=== PATIENT | female | born 1950 | race Caucasian/White ===

== ENCOUNTER 2019-05-18 11:32 | Inpatient (IN) ==
[2019-05-18] MEDS ORDERED: traMADol 50 MG TABLET PO PRN (14:12)
[2019-05-18] MEDS ORDERED: NON-FORMULARY MEDICATION 1 EACH EACH (Ondansetron Hcl [Zofran] 4 MG) PO PRN (14:12)
[2019-05-18] MEDS ORDERED: Albuterol 2.5 MG/3 ML NEBULIZER IH PRN ×2 (14:12→17:13)
[2019-05-18] MEDS: *HR* Rivaroxaban 10 MG TABLET PO SCH (16:29)
[2019-05-18] MEDS: Cefdinir 300 MG CAPSULE PO SCH (21:21)
[2019-05-18] MEDS: ACLIDINIUM IH SCH (22:05)
[2019-05-19] MEDS: Cefdinir 300 MG CAPSULE PO SCH ×2 (10:18→20:47)
[2019-05-19] MEDS: Furosemide 20 MG TABLET PO SCH (10:18)
[2019-05-19] MEDS: Folic Acid 1 MG TABLET PO SCH (10:18)
[2019-05-19] MEDS: Celecoxib 100 MG CAPSULE PO SCH (10:18)
[2019-05-19] MEDS: Fluticasone Propionate Nasal 50 MCG/SPRAY BOTTLE NS SCH (10:19)
[2019-05-19] MEDS: traMADol 50 MG TABLET PO PRN ×2 (10:25→20:47)
[2019-05-19] MEDS: DALIRESP 500MCG PO SCH ×2 (10:26→18:28)
[2019-05-19] MEDS: BREO ELLIPTA IH SCH (10:26)
[2019-05-19] MEDS: ACLIDINIUM IH SCH ×2 (10:26→20:49)
[2019-05-19] MEDS: Albuterol 2.5 MG/3 ML NEBULIZER IH PRN ×2 (10:55→22:18)
[2019-05-19] MEDS: Ondansetron ODT 4 MG TAB.RAPDIS PO PRN (13:15)
[2019-05-19] MEDS: *HR* Rivaroxaban 10 MG TABLET PO SCH (18:22)
[2019-05-19] MEDS: Lactobacillus 1 EACH CAP.SPRINK PO SCH (20:46)
[2019-05-20 06:59] LABS: Basophils % 0.4 %; Eosinophils # 0.3 K/mcL (0.0-0.6); Eosinophils % 2.4 %; Hematocrit 40.4 % (35.3-44.9); Hemoglobin 12.9 g/dL (11.5-15.4); Immature Granulocytes % 0.7 % (0-4); Lymphocytes # 1.6 K/mcL (0.6-4.6); Lymphocytes % 15.2 %; Mean Corpuscular HGB Conc 31.9 g/dL (31.6-35.5); Mean Corpuscular Hemoglobin 30.5 pg (28.0-33.3); Mean Corpuscular Volume 95.5 fL (83.0-100.0); Mean Platelet Volume 10.8 fL (9.4-12.4); Monocytes # 0.8 K/mcL (0.0-1.3); Monocytes % 7.8 %; Neutrophils # 7.8 K/mcL (1.6-8.9); Platelet Count 309 K/mcL (140-400); Red Blood Count 4.23 M/mcL (3.82-4.97); Red Cell Distribution Width 14.4 % (11.5-14.5); Segmented Neutrophils % 73.5 %; White Blood Count 10.6 K/mcL (4.3-11.1)
[2019-05-20 07:40] LABS: BUN/Creatinine Ratio 13 (6-26); Blood Urea Nitrogen 12 mg/dL (8-23); Calcium 9.1 mg/dL (8.6-10.3); Carbon Dioxide 32 mEq/L (23-29); Chloride 98 mEq/L (98-107); Glucose 125 mg/dL (70-105); Osmolality,Calculated 285 (280-300); Potassium 3.7 mEq/L (3.5-5.1); Sodium 137 mEq/L (136-145); Uric Acid 7.9 mg/dL (2.3-7.6); eGFR For African Americans > 60 (> 60); eGFR For Non-African Americans > 60 (> 60)
[2019-05-20] MEDS: Celecoxib 100 MG CAPSULE PO SCH (07:48)
[2019-05-20] MEDS: Cefdinir 300 MG CAPSULE PO SCH ×2 (07:49→20:09)
[2019-05-20] MEDS: Lactobacillus 1 EACH CAP.SPRINK PO SCH ×2 (07:49→20:08)
[2019-05-20] MEDS: Folic Acid 1 MG TABLET PO SCH (07:49)
[2019-05-20] MEDS: traMADol 50 MG TABLET PO PRN ×3 (07:49→20:09)
[2019-05-20] MEDS: Furosemide 20 MG TABLET PO SCH (07:50)
[2019-05-20 07:54] LABS: Thyroid Stimulating Hormone 2.063 mcIU/mL (0.340-5.600)
[2019-05-20] MEDS: Fluticasone Propionate Nasal 50 MCG/SPRAY BOTTLE NS SCH (07:57)
[2019-05-20] MEDS: ACLIDINIUM IH SCH ×2 (07:58→20:16)
[2019-05-20] MEDS: BREO ELLIPTA IH SCH (07:58)
[2019-05-20] MEDS: DALIRESP 500MCG PO SCH (07:58)
[2019-05-20] MEDS: Albuterol 2.5 MG/3 ML NEBULIZER IH PRN (08:46)
[2019-05-20] MEDS: Acetaminophen 325 MG TABLET PO PRN (10:32)
[2019-05-20] MEDS: *HR* Rivaroxaban 10 MG TABLET PO SCH (15:25)
[2019-05-20] MEDS: Ondansetron ODT 4 MG TAB.RAPDIS PO PRN (20:09)
[2019-05-21] MEDS: Acetaminophen 325 MG TABLET PO PRN (00:26)
[2019-05-21] MEDS: Lactobacillus 1 EACH CAP.SPRINK PO SCH ×2 (09:12→19:57)
[2019-05-21] MEDS: Celecoxib 100 MG CAPSULE PO SCH (09:12)
[2019-05-21] MEDS: Folic Acid 1 MG TABLET PO SCH (09:12)
[2019-05-21] MEDS: traMADol 50 MG TABLET PO PRN ×2 (09:13→20:05)
[2019-05-21] MEDS: Furosemide 20 MG TABLET PO SCH (09:13)
[2019-05-21] MEDS: Cefdinir 300 MG CAPSULE PO SCH ×2 (09:13→19:57)
[2019-05-21] MEDS: Fluticasone Propionate Nasal 50 MCG/SPRAY BOTTLE NS SCH (09:15)
[2019-05-21] MEDS: DALIRESP 500MCG PO SCH (09:17)
[2019-05-21] MEDS: BREO ELLIPTA IH SCH (12:20)
[2019-05-21] MEDS: ACLIDINIUM IH SCH ×2 (12:20→23:56)
[2019-05-21] MEDS: Ondansetron ODT 4 MG TAB.RAPDIS PO PRN (15:56)
[2019-05-21] MEDS: *HR* Rivaroxaban 10 MG TABLET PO SCH (17:17)
[2019-05-21] MEDS: Albuterol 2.5 MG/3 ML NEBULIZER IH PRN (18:58)
[2019-05-22] MEDS: Furosemide 20 MG TABLET PO SCH (08:13)
[2019-05-22] MEDS: Cefdinir 300 MG CAPSULE PO SCH ×2 (08:14→21:35)
[2019-05-22] MEDS: Folic Acid 1 MG TABLET PO SCH (08:14)
[2019-05-22] MEDS: Lactobacillus 1 EACH CAP.SPRINK PO SCH ×2 (08:14→21:34)
[2019-05-22] MEDS: Celecoxib 100 MG CAPSULE PO SCH (08:14)
[2019-05-22] MEDS: DALIRESP 500MCG PO SCH (08:15)
[2019-05-22] MEDS: Fluticasone Propionate Nasal 50 MCG/SPRAY BOTTLE NS SCH (08:15)
[2019-05-22] MEDS: ACLIDINIUM IH SCH ×2 (08:25→21:27)
[2019-05-22] MEDS: Ondansetron ODT 4 MG TAB.RAPDIS PO PRN ×2 (10:53→19:24)
[2019-05-22] MEDS: BREO ELLIPTA IH SCH (12:02)
[2019-05-22] MEDS: *HR* Rivaroxaban 10 MG TABLET PO SCH (16:29)
[2019-05-22] MEDS: traMADol 50 MG TABLET PO PRN (21:34)
[2019-05-23] MEDS: Fluticasone Propionate Nasal 50 MCG/SPRAY BOTTLE NS SCH (08:38)
[2019-05-23] MEDS: DALIRESP 500MCG PO SCH (08:38)
[2019-05-23] MEDS: ACLIDINIUM IH SCH ×2 (08:38→20:37)
[2019-05-23] MEDS: Lactobacillus 1 EACH CAP.SPRINK PO SCH ×2 (08:39→20:37)
[2019-05-23] MEDS: Cefdinir 300 MG CAPSULE PO SCH ×2 (08:39→20:37)
[2019-05-23] MEDS: BREO ELLIPTA IH SCH (08:39)
[2019-05-23] MEDS: Folic Acid 1 MG TABLET PO SCH (08:39)
[2019-05-23] MEDS: Furosemide 20 MG TABLET PO SCH (08:39)
[2019-05-23] MEDS: Celecoxib 100 MG CAPSULE PO SCH (08:39)
[2019-05-23] MEDS: traMADol 50 MG TABLET PO PRN ×2 (08:39→14:58)
[2019-05-23] MEDS: Ondansetron ODT 4 MG TAB.RAPDIS PO PRN (08:41)
[2019-05-23] MEDS: Albuterol 2.5 MG/3 ML NEBULIZER IH PRN (09:19)
[2019-05-23] MEDS: *HR* Rivaroxaban 10 MG TABLET PO SCH (16:48)
[2019-05-24] MEDS: Lactobacillus 1 EACH CAP.SPRINK PO SCH ×2 (08:48→19:56)
[2019-05-24] MEDS: Cefdinir 300 MG CAPSULE PO SCH ×2 (08:48→19:56)
[2019-05-24] MEDS: traMADol 50 MG TABLET PO PRN ×2 (08:48→19:55)
[2019-05-24] MEDS: Furosemide 20 MG TABLET PO SCH (08:48)
[2019-05-24] MEDS: Folic Acid 1 MG TABLET PO SCH (08:49)
[2019-05-24] MEDS: Celecoxib 100 MG CAPSULE PO SCH (08:49)
[2019-05-24] MEDS: DALIRESP 500MCG PO SCH (08:50)
[2019-05-24] MEDS: ACLIDINIUM IH SCH ×2 (08:50→19:57)
[2019-05-24] MEDS: Fluticasone Propionate Nasal 50 MCG/SPRAY BOTTLE NS SCH (08:50)
[2019-05-24] MEDS: BREO ELLIPTA IH SCH (08:53)
[2019-05-24] MEDS: Ondansetron ODT 4 MG TAB.RAPDIS PO PRN ×2 (08:53→19:55)
[2019-05-24] MEDS: Albuterol 2.5 MG/3 ML NEBULIZER IH PRN ×2 (09:04→20:36)
[2019-05-24] MEDS: *HR* Rivaroxaban 10 MG TABLET PO SCH (15:49)
[2019-05-25 06:37] LABS: Basophils % 0.4 %; Eosinophils # 0.1 K/mcL (0.0-0.6); Eosinophils % 1.5 %; Hematocrit 39.4 % (35.3-44.9); Hemoglobin 12.6 g/dL (11.5-15.4); Immature Granulocytes % 0.6 % (0-4); Lymphocytes # 1.4 K/mcL (0.6-4.6); Lymphocytes % 15.7 %; Mean Corpuscular Hemoglobin 29.6 pg (28.0-33.3); Mean Corpuscular Volume 92.5 fL (83.0-100.0); Monocytes # 0.8 K/mcL (0.0-1.3); Monocytes % 8.4 %; Neutrophils # 6.6 K/mcL (1.6-8.9); Platelet Count 325 K/mcL (140-400); Red Blood Count 4.26 M/mcL (3.82-4.97); Red Cell Distribution Width 13.5 % (11.5-14.5); Segmented Neutrophils % 73.4 %
[2019-05-25 08:24] LABS: Calcium 9.8 mg/dL (8.6-10.3); Potassium 3.5 mEq/L (3.5-5.1)
[2019-05-25] MEDS: traMADol 50 MG TABLET PO PRN ×2 (08:58→21:10)
[2019-05-25] MEDS: Cefdinir 300 MG CAPSULE PO SCH (08:59)
[2019-05-25] MEDS: Folic Acid 1 MG TABLET PO SCH (08:59)
[2019-05-25] MEDS: Fluticasone Propionate Nasal 50 MCG/SPRAY BOTTLE NS SCH (08:59)
[2019-05-25] MEDS: Celecoxib 100 MG CAPSULE PO SCH (09:00)
[2019-05-25] MEDS: Lactobacillus 1 EACH CAP.SPRINK PO SCH ×2 (09:01→21:08)
[2019-05-25] MEDS: Furosemide 20 MG TABLET PO SCH (09:01)
[2019-05-25] MEDS: BREO ELLIPTA IH SCH (09:05)
[2019-05-25] MEDS: DALIRESP 500MCG PO SCH (09:05)
[2019-05-25] MEDS: ACLIDINIUM IH SCH ×2 (09:05→21:08)
[2019-05-25] MEDS: Albuterol 2.5 MG/3 ML NEBULIZER IH PRN ×2 (13:08→18:12)
[2019-05-25] MEDS: Ondansetron ODT 4 MG TAB.RAPDIS PO PRN (13:11)
[2019-05-25] MEDS: *HR* Rivaroxaban 10 MG TABLET PO SCH (15:52)
[2019-05-25] MEDS ORDERED: Ondansetron ODT 4 MG TAB.RAPDIS PO PRN (17:22)
[2019-05-26] MEDS: Lactobacillus 1 EACH CAP.SPRINK PO SCH ×2 (09:38→20:36)
[2019-05-26] MEDS: Celecoxib 100 MG CAPSULE PO SCH (09:38)
[2019-05-26] MEDS: Furosemide 20 MG TABLET PO SCH (09:39)
[2019-05-26] MEDS: Folic Acid 1 MG TABLET PO SCH (09:39)
[2019-05-26] MEDS: traMADol 50 MG TABLET PO PRN ×2 (09:40→16:27)
[2019-05-26] MEDS: Fluticasone Propionate Nasal 50 MCG/SPRAY BOTTLE NS SCH (09:45)
[2019-05-26] MEDS: BREO ELLIPTA IH SCH (09:45)
[2019-05-26] MEDS: DALIRESP 500MCG PO SCH (09:48)
[2019-05-26] MEDS: ACLIDINIUM IH SCH ×2 (09:48→23:05)
[2019-05-26] MEDS: Acetaminophen 325 MG TABLET PO PRN (14:13)
[2019-05-26] MEDS: *HR* Rivaroxaban 10 MG TABLET PO SCH (16:27)
[2019-05-26] MEDS: Albuterol 2.5 MG/3 ML NEBULIZER IH PRN (19:00)
[2019-05-27] MEDS: traMADol 50 MG TABLET PO PRN (03:28)
[2019-05-27] MEDS: Acetaminophen 325 MG TABLET PO PRN (05:21)
[2019-05-27] MEDS: Celecoxib 100 MG CAPSULE PO SCH (08:19)
[2019-05-27] MEDS: Folic Acid 1 MG TABLET PO SCH (08:20)
[2019-05-27] MEDS: Furosemide 20 MG TABLET PO SCH (08:20)
[2019-05-27] MEDS: Lactobacillus 1 EACH CAP.SPRINK PO SCH ×2 (08:20→22:08)
[2019-05-27] MEDS: Fluticasone Propionate Nasal 50 MCG/SPRAY BOTTLE NS SCH (08:27)
[2019-05-27] MEDS: DALIRESP 500MCG PO SCH (08:27)
[2019-05-27] MEDS: BREO ELLIPTA IH SCH (08:28)
[2019-05-27] MEDS: ACLIDINIUM IH SCH ×2 (08:29→22:07)
[2019-05-27] MEDS: *HR* Rivaroxaban 10 MG TABLET PO SCH (17:55)
[2019-05-28] MEDS: traMADol 50 MG TABLET PO PRN (00:59)
[2019-05-28] MEDS: DALIRESP 500MCG PO SCH (08:41)
[2019-05-28] MEDS: Fluticasone Propionate Nasal 50 MCG/SPRAY BOTTLE NS SCH (08:42)
[2019-05-28] MEDS: BREO ELLIPTA IH SCH (08:42)
[2019-05-28] MEDS: ACLIDINIUM IH SCH (08:42)
[2019-05-28 08:47] VITALS: BP 151/83
[2019-05-28] MEDS: Celecoxib 100 MG CAPSULE PO SCH (09:19)
[2019-05-28] MEDS: Lactobacillus 1 EACH CAP.SPRINK PO SCH (09:19)
[2019-05-28] MEDS: Folic Acid 1 MG TABLET PO SCH (09:20)
[2019-05-28] MEDS: Furosemide 20 MG TABLET PO SCH (09:20)
[2019-05-28] MEDS: *HR* Rivaroxaban 10 MG TABLET PO SCH (15:48)
== END 2019-05-28 17:35 | disposition home health service (06) | DRG 872 ==
LOC: INPPIK 14:24
PROVIDERS: ADMIT Internal Medicine; ATTEND Internal Medicine